=== PATIENT | female | born 1975 | race Caucasian/White ===

== ENCOUNTER → 2018-10-20 | Day surgery (SDC) | payer BC ==
--- NOTE | 2018-10-08 10:42 | HP ---
Admitting History and Physical - Primary Care Physician PCP: Ban Dubois - Admission Chief Complaint: Left breast intraductal papilloma History of Present Illness: 43 year old premenapausal female with screening mammogram 08/2018 showing dense breasts and US showed an irregular 5mm mass left breast 8:30 position 3 cm FN. Left breast US core biopsy revealed intraductal papilloma without atypia. This was felt to be concordant but should be excised. History Source: Patient Limitations to Obtaining History: No Limitations - Past Medical History ENT: Yes: Other (allergies seasonal) - Past Surgical History Past Surgical History: Yes: (x2) - Smoking History Smoking history: Never smoked Have you smoked in the past 12 months: No - Alcohol/Substance Use Hx Alcohol Use: Yes (social) Home Medications - Allergies Allergies/Adverse Reactions: Allergies Allergy/AdvReac Type Severity Reaction Status Date / Time No Known Allergies Allergy Verified 10/08/18 10:41 - Home Medications Home Medications (free text): zyrtec Family Disease History - Family Disease History Family Disease History: CA: Grandparent (mat GM uterine ca), Father (CLL) Physical Examination Constitutional: Yes: Well Nourished Breast(s): Yes: Other (diffusely nodular dense no palpable mass or adenopathy bilaterally post bx changes left breast) Problem List - Problems (1) Intraductal papilloma of left breast Code(s): D24.2 - BENIGN NEOPLASM OF LEFT BREAST Assessment/Plan Left breast wide excision with mammogram needle localization
[2018-10-12 16:26] VITALS: BMI 25.0
[~2018-10-20] MED LIST: BUPIVACAINE HCL/PF 0.25% (2.5MG/ML) 10 ML VIAL IJ ONE; BUPIVACAINE HCL/PF 2.5 MG/ML - 30 ML VIAL IJ ONE; DEXAMETHASONE SOD PHOSPHATE 4 MG/1 ML VIAL ONE; DEXTROSE 5%-0.45% SALINE 1,000 ML IV SCH; KETOROLAC TROMETHAMINE 30 MG/1 ML VIAL IVPUSH PRN; LACTATED RINGERS SOLUTION 1,000 ML IV SCH; LIDOCAINE HCL 1% PRESERVATIVE FREE - 30ML VIAL ONE; LIDOCAINE HCL 1%, 10 MG/ML (50 mL VIAL) IJ ONE; MIDAZOLAM HCL 2 MG/2 ML SINGLE DOSE VIAL ONE; ONDANSETRON 4 MG/2 ML VIAL IVPUSH PRN; ONDANSETRON 4 MG/2 ML VIAL ONE; PROMETHAZINE HCL 25 MG/1 ML VIAL IVPUSH PRN; PROPOFOL 20 ML ONE; SODIUM CHLORIDE 0.9% P/F 10 ML VIAL IJ ONE; fentaNYL CITRATE 250 MCG/5 ML VIAL ONE; oxyCODONE HCL 5 MG TABLET PO PRN
[2018-10-20 12:49] VITALS: TEMP 98.2
[2018-10-20 13:10] VITALS: BP 106/72; PULSE 68
--- NOTE | 2018-10-21 10:47 | OP ---
DATE OF OPERATION: 10/20/2018 PREOPERATIVE DIAGNOSIS: Left breast papilloma, discordant. POSTOPERATIVE DIAGNOSIS: Left breast papilloma, discordant. PROCEDURE: Left mammographically localized partial mastectomy. ANESTHESIA: IV sedation with local. ATTENDING SURGEON: Ban Dubois MD ESTIMATED BLOOD LOSS: Minimal. COMPLICATIONS: DESCRIPTION OF PROCEDURE: Patient was made aware of the risks and benefits of the procedure and consented. Preoperatively, she went to Radiology where a needle and wire were placed next to the indexed lesion. She was then placed in the supine position on the operating room table, and after IV sedation was administered, the operative site was prepped and draped in the usual sterile fashion. A mixture of 1% lidocaine and 0.25% bupivacaine in a one-to-one ratio was used for local anesthesia. A curvilinear periareolar incision was then made using electrocautery. Tissues were dissected down to the wire. The needle was withdrawn to through puncture site, and a wire through the wound. Tissues around the wire were then surgically excised and submitted with a short suture superior, long suture lateral. Specimen radiograph confirmed the presence of the indexed lesion. Wound was then copiously irrigated with normal saline. Hemostasis was maintained by electrocautery. Wound was closed with deep interrupted subdermal Vicryl followed by running subcuticular 4-0 Monocryl. Dermabond, sterile dressings, and compression bra were then applied, and the patient, having tolerated the procedure, was transferred to the recovery room in excellent condition. BAN DUBOIS M.D. [id number]
--- NOTE | 2018-10-22 12:09 | PATH ---
Surgical Pathology Report Patient Name: MIGUEL MADISON [facility]. Rec. #: [id number] /Age/Gender: 1975 (Age: 43) / F Account: [id number] Location: [facility] AMBULATORY Taken: 10/20/2018 Received: 10/20/2018 Reported: 10/22/2018 Physicians: Ban Dubois M.D. Specimen(s) Received LEFT BREAST WIDE EXCISION Clinical History Papilloma Final Diagnosis BREAST, LEFT, WIDE EXCISION: INTRADUCTAL PAPILLOMA AND FIBROCYSTIC CHANGES. PRIOR BIOPSY SITE CHANGES ARE PRESENT. Electronically Signed Suze Grimes M.D. Gross Description Received fresh on an AccuGrid, labeled "left breast wide excision" is a 3 x 3 x 1 cm. jimenez-yellow, irregular, portion of fibroadipose tissue. There is a short suture marking the superior aspect and a long suture marking the lateral aspect, per the surgeon. There is no skin present. The specimen is inked as follows: superior and lateral blue; inferior green; medial yellow; anterior red; deep black. The specimen is serially sectioned from anterior to posterior. Sectioning reveals a 0.5 x 0.4 cm focally hemorrhagic mass 0.5 cm from closest medial and lateral margins. Entire specimen is sequentially submitted in 4 cassettes as follows: 1- anterior margin; 2-3 mass; 4-posterior margin. Total formalin fixation time: Approximately 7 hours MLSZ/10/20/2018 sanml/10/20/2018
== END | disposition home or self-care (01) ==
LOC: FASU 06:50
PROVIDERS: ATTEND Surgery Surgical Oncology
PROC: 0HBU0ZZ Excision of Left Breast, Open Approach (ICD-10-PCS; principal; 2018-10-20 10:50)
DX: D24.2 Benign neoplasm of left breast (principal)
CPT/HCPCS: 19281; 84703; 88307-TC; 94760